=== PATIENT | male | born 1970 | race Caucasian/White ===

== ENCOUNTER 2017-04-18 07:36 | Emergency (ER) | payer BC ==
[2017-04-18 08:27] VITALS: BP 132/72
[2017-04-18] MEDS ORDERED: Naproxen TAB* 250 MG PO ONE (09:03)
--- NOTE | 2017-04-18 09:22 | UC ---
Elbow Pain - HPI Summary HPI Summary: 46 yo male with right elbow pain x days now swollen and tender over lat epicondyle no trauma hx tennis elbow had cortisone injection about 4 months ago no f/c recent URI - History of Current Complaint Chief Complaint: UCUpperExtremity Stated Complaint: RIGHT ELBOW PAIN Time Seen by Provider: 04/18/17 08:58 Hx Obtained From: Patient Onset/Duration: Days Severity Initially: Moderate Severity Currently: Moderate Pain Intensity: 6 Pain Scale Used: 0-10 Numeric Location Of Pain: Is Discrete @ Character: Aching, Throbbing, Stiffness Aggravating Factor(s): Movement Alleviating Factor(s): Rest Associated Signs And Symptoms: Positive: Swelling Related History: Similar Episode/Dx as - tennis elbow - Allergies/Home Medications Allergies/Adverse Reactions: Allergies Allergy/AdvReac Type Severity Reaction Status Date / Time No Known Allergies Allergy Verified 04/18/17 08:15 Home Medications: Home Medications Allopurinol TAB* [Zyloprim 300 MG TAB*] 300 mg PO DAILY 04/18/17 [History Confirmed 04/18/17] Atorvastatin* [Lipitor*] 10 mg PO DAILY 04/18/17 [History Confirmed 04/18/17] Lisinopril TAB* [Prinivil TAB*] 40 mg PO DAILY 04/18/17 [History Confirmed 04/18] Minocycline (NF) 100 mg PO BID 04/18/17 [History Confirmed 04/18/17] Ufickstzxaaul-Msbwhavgek-Viqoh [Nyquil Severe Cold/Flu 5-6.25-10-325 mg/15Ml] 30 ml PO Q6H PRN 04/18/17 [History Confirmed 04/18/17] amLODIPine TAB* [Norvasc 5 mg TAB*] 2.5 mg PO DAILY 04/18/17 [History Confirmed 04/18/17] PMH/Surg Hx/FS Hx/Imm Hx Previously Healthy: Yes Cardiovascular History Of: Reports: Hypertension - Surgical History Surgical History: Yes Surgery Procedure, Year, and Place: Nasal Polyps, ~2013, [place]; Right Inguinal Herniorrhaphy, ~1978 - Family History Known Family History: Positive: Hypertension - Social History Alcohol Use: Weekly Substance Use Type: None Smoking Status (MU): Smoker, Current Status Unknown Type: Cigarettes Amount Used/How Often: ~1/2 PPD; now twice weekly while drinking alcohol Length of Time of Smoking/Using Tobacco: Since Age 18 Have You Smoked in the Last Year: Yes Review of Systems Constitutional: Negative Skin: Negative Eyes: Negative ENT: Negative Respiratory: Negative Cardiovascular: Negative Gastrointestinal: Negative Genitourinary: Negative Motor: Negative Neurovascular: Negative Musculoskeletal: Arthralgia Neurological: Negative Psychological: Negative All Other Systems Reviewed And Are Negative: Yes Physical Exam Triage Information Reviewed: Yes Appearance: Well-Appearing, No Pain Distress, Well-Nourished Vital Signs: Initial Vital Signs Temp 97.8 F 04/18/17 08:11 Pulse 88 04/18/17 08:11 Resp 20 04/18/17 08:11 BP 132/72 04/18/17 08:11 Pulse Ox 99 04/18/17 08:11 Vital Signs Reviewed: Yes Eyes: Positive: Conjunctiva Clear ENT: Positive: Hearing grossly normal, Nasal congestion, Nasal drainage, TMs normal. Negative: Trismus, Muffled/hoarse voice Neck: Positive: Supple, Nontender, No Lymphadenopathy Respiratory: Positive: Lungs clear, Normal breath sounds, No respiratory distress Cardiovascular: Positive: RRR, No Murmur, Pulses Normal Musculoskeletal: Positive: ROM Limited @ - right elbow Neurological: Positive: Alert Psychological Exam: Normal Skin Exam: Normal Elbow Pain Course/Dx - Differential Dx/Diagnosis Provider Diagnoses: right tennis elbow. viral URI Discharge - Discharge Plan Condition: Stable Disposition: HOME Prescriptions: Naproxen Sodium [Naproxen Sodium 500 MG TAB] 500 mg PO BID PRN #30 tab PRN Reason: Pain Patient Education Materials: Tennis Elbow (ED) Referrals: Kai Richardson MD [Medical Doctor] - As Soon As Possible Additional Instructions: heat massage tennis elbow brace Images Front/Back of Body, Lg ([place]): 1 - tender/swollen lat epicondyle
--- NOTE | 2017-04-18 09:30 | RAD ---
INDICATION: Pain and swelling right elbow. TECHNIQUE: 4 views of the right elbow were obtained. FINDINGS: The bones are in normal alignment. No joint effusion or fracture is seen. Joint spaces appear maintained. No abnormal soft tissue calcifications are seen. IMPRESSION: NEGATIVE EXAM.
== END 2017-04-18 09:38 | disposition home or self-care (01) ==
LOC: UCCORT 07:36
DX: M77.11 Lateral epicondylitis, right elbow (principal); J06.9 Acute upper respiratory infection, unspecified; I10 Essential (primary) hypertension; Z72.0 Tobacco use
CPT/HCPCS: 99202; A9270-GY; G0463

== ENCOUNTER 2017-07-01 06:23 | Day surgery (SDC) | payer BC ==
[~2017-07-01 06:23] MED LIST: Buffered Lidocaine 0.9% SYRIN* 5 ML/SYR SYRINGE INTRADERM ONE
[2017-07-01] MEDS ORDERED: ceFAZolin 2 GM PREMIX(*) 2 GM/50 ML BAG IVPB ONE (06:32)
[2017-07-01] MEDS ORDERED: Bupivacaine 0.25% SDV* 30 ML ONE (07:39)
[2017-07-01] MEDS ORDERED: fentaNYL* 50 MCG/ML 2 ML VIAL (100 MCG VIAL) ONE (07:41)
[2017-07-01] MEDS ORDERED: Midazolam* 1 MG/ML 5 ML VIAL (5 MG) ONE (07:41)
[2017-07-01] MEDS ORDERED: Ibuprofen TAB* 600 MG PO PRN (08:22)
[2017-07-01] MEDS ORDERED: Acetaminophen TAB* 325 MG PO PRN (08:22)
[2017-07-01] MEDS ORDERED: Propofol* 10 MG/ML 20 ML BTL IV PUSH ONE (08:29)
[2017-07-01 08:43] VITALS: BP 122/77
--- NOTE | 2017-07-02 08:21 | OP ---
DATE OF OPERATION: 07/01/17 - [facility] DATE OF : 66 SURGEON: Junaid Goodwin MD LEAD APPLICATION ARCHITECT: CARLITA Martinez ANESTHESIOLOGIST: Dr. Styles. ANESTHESIA: Local MAC. PRE-OP DIAGNOSIS: Chronic right elbow lateral epicondylitis. POST-OP DIAGNOSIS: Chronic right elbow lateral epicondylitis. OPERATIVE PROCEDURE: Debridement of chronic right lateral epicondylitis ( extensor carpi radialis brevis origin). INDICATIONS: Junaid has had chronic right elbow lateral epicondylitis for at least 2 years. He has had multiple nonoperative treatments. The pain has persisted. We talked about risks and benefits including the risk of postoperative elbow instability. He elected to proceed. ESTIMATED BLOOD LOSS: 2 mL. COMPLICATIONS: None. FINDINGS: As expected. DESCRIPTION OF PROCEDURE: Junaid was seen in the preoperative holding area and the correct side, site, and procedure were verified. We came back to the operating room. He got some anesthesia. I anesthetized the operative area and was prepped and draped in the usual fashion. A formal time-out was performed. I began by making a longitudinal incision from just proximal to the mid aspect of the epicondyle down staying just in line with the mid point of the radiocapitellar joint. Full thickness flaps were raised right off of the fascia. I then identified the more tendinous EDC with the more muscular ECRL interval. I incised this longitudinally. The more superficial layers were retracted and a fair amount of fishy, disorganized tissue was encountered. This was debrided directly off the lateral epicondyle against the anterior to the line between the epicondyle and the midline of the radiocapitellar joint. The debridement was carried out full thickness. A little bit of radiocapitellar joint capsule came with the debridement. I finished up the debridement with a rongeur. Once this was done, we irrigated out the wound. The tendon was first reapproximated with 0 Vicryl suture. The skin was closed with 4-0 nylon suture. The wound was dressed with Xeroform, 4x4s, sterile Webril, and an Andrey bandage. Tourniquet was deflated. The arm was exsanguinated with an Esmarch and the tourniquet inflated to 250 mmHg prior to skin incision. He was then woken up and taken to recovery room in stable condition. [id number]/[facility] #: [id number] BRANDI
== END 2017-07-01 09:02 | disposition home or self-care (01) ==
LOC: OREAST 06:23
PROVIDERS: ATTEND Orthopaedic Surgery Hand Surgery
DX: M77.11 Lateral epicondylitis, right elbow (principal); E66.9 Obesity, unspecified; I10 Essential (primary) hypertension; E78.5 Hyperlipidemia, unspecified; F17.210 Nicotine dependence, cigarettes, uncomplicated; G47.33 Obstructive sleep apnea (adult) (pediatric); M10.9 Gout, unspecified; Z68.30 Body mass index [BMI] 30.0-30.9, adult
CPT/HCPCS: 88305; J0690; J2250; J2704; J3010